=== PATIENT | female | born 1960 | race African-American/Black ===

== ENCOUNTER 2020-03-05 19:00 | Emergency (ER) | payer BC, OTHER ==
[~2020-03-05] VITALS: Ht 160 cm; Wt 85.0 kg
[2020-03-05] MEDS ORDERED: ENOXAPARIN 100MG/ML SYR SUBCUT ONE (20:00)
[2020-03-05 20:11] LABS: BASOPHILS % 0.6 % (0.0-2.0); EOSINOPHILS % 1.6 % (0.0-5.0); HEMATOCRIT. 44.2 % (36.0-48.0); HEMOGLOBIN. 14.8 g/dL (12.0-16.0); LYMPHOCYTES % 17.3 % (20.0-50.0); MEAN CORPUSCULAR HEMOGLOBIN 31.7 pg (28.0-32.0); MEAN CORPUSCULAR VOLUME 94.3 fL (81.0-99.0); MEAN PLATELET VOLUME 8.7 fl (7.4-10.4); MONOCYTES % 6.6 % (2.0-8.0); NEUTROPHILS % 73.9 % (40.0-76.0); PLATELET 213 x1000/uL (130-400); RED BLOOD CELL COUNT 4.68 mill/uL (4.2-5.4); RED CELL DISTRIBUTION WIDTH 12.9 % (11.6-14.6)
[2020-03-05] MEDS ORDERED: ONDANSETRON 4MG ODT PO ONE (20:30)
[2020-03-05 20:57] LABS: CHLORIDE 105 mEq/L (98-107)
[2020-03-05 21:02] LABS: PROTHROMBIN TIME 10.5 sec (9.6-11.0)
[2020-03-05] MEDS ORDERED: AMLODIPINE 5MG TABLET PO ONE (21:15)
[2020-03-05] MEDS ORDERED: IOHEXOL-350 100 ML BOTTLE ONE (23:29)
[2020-03-05 23:50] VITALS: BP 131/75
== END 2020-03-05 23:50 | disposition home or self-care (01) ==
LOC: ER 19:00
DX: I16.0 Hypertensive urgency (principal); I82.409 Acute embolism and thrombosis of unspecified deep veins of unspecified lower extremity; Z87.828 Personal history of other (healed) physical injury and trauma; Z96.659 Presence of unspecified artificial knee joint; Z99.3 Dependence on wheelchair
CPT/HCPCS: 36415; 70450; 71275; 80053; 84484; 85025; 85610; 93005; 96372; 99285; J1650; Q0162; Q9967

== ENCOUNTER 2024-03-16 11:06 | Emergency (ER) | payer OTHER ==
[~2024-03-16] VITALS: Ht 157.5 cm; Wt 62.0 kg
[2024-03-16 11:07] VITALS: TEMP 98.5; O2SAT 100
[2024-03-16] MEDS: HYDROMORPHONE HCL/PF 2MG/ML INJ IM ONE (14:38)
[2024-03-16 15:54] VITALS: BP 157/99; PULSE 91; RESP 16; O2SAT 100
[2024-03-16] MEDS: AMLODIPINE 5MG TABLET PO ONE (15:54)
== END 2024-03-16 17:30 | disposition home or self-care (01) ==
LOC: ER 11:10
DX: M25.512 Pain in left shoulder (principal); I10 Essential (primary) hypertension; Z88.5 Allergy status to narcotic agent; Z91.040 Latex allergy status
CPT/HCPCS: 99283; 73030; 96372; J1171